=== PATIENT | female | born 1980 | race Hispanic/Latino ===

== ENCOUNTER 2024-04-02 14:00 | Outpatient (CLI) | payer BC ==
[2024-04-02 14:56] LABS: Hematocrit 34.7 % (34.9-44.5); Hemoglobin 11.1 g/dL (12.0-15.5); Mean Corpuscular Volume 87.6 fL (81.6-98.3); Mean Platelet Volume 9.7 fL (7.4-10.4); Platelet Count 291 10x3/uL (150-450); RBC Distribution Width 12.4 % (11.5-14.5); Red Blood Cell (RBC) Count 3.96 10x6/uL (3.90-5.03); White Blood Cell (WBC) Count 6.9 10x3/uL (3.5-10.5)
[2024-04-02 15:47] LABS: BHCG - Serum Negative (NEGATIVE); Pregs Control Background? CLEAR/WHITE (CLR/WHITE); Pregs Control Bar Appear? YES (CONTROL BAR)
== END 2024-04-02 14:01 | disposition home or self-care (01) ==
LOC: CSHLAB 14:00
PROVIDERS: ATTEND Obstetrics & Gynecology
DX: Z01.812 Encounter for preprocedural laboratory examination (principal); R93.89 Abnormal findings on diagnostic imaging of other specified body structures
CPT/HCPCS: 84703; 85027; 86850; 86900; 86901

== ENCOUNTER 2024-04-06 07:57 | Day surgery (SDC) | payer BC ==
[2024-04-02 14:51] VITALS: BMI 29.4
[2024-04-06] MEDS ORDERED: Gabapentin 300 MG CAP ONE (08:40)
[2024-04-06] MEDS ORDERED: Scopolamine 1 mg/72 hour Patch ONE (08:59)
[2024-04-06] MEDS ORDERED: Midazolam HCl 2 mg/2 ml Vial ONE (08:59)
[2024-04-06] MEDS ORDERED: Lidocaine 1% PF 5 ML VIAL ONE (09:20)
[2024-04-06] MEDS ORDERED: PROPOFOL 20 ML ONE (09:20)
[2024-04-06] MEDS ORDERED: Dexamethasone 4 mg/ml Vial ONE (09:30)
[2024-04-06] MEDS ORDERED: Ondansetron PF 4 MG/2 ML Vial ONE (09:30)
[2024-04-06] MEDS ORDERED: fentaNYL 50 mcg/mL 1 mL Vial ONE (09:58)
[2024-04-06] MEDS ORDERED: CEFAZOLIN 2 GM VIAL ONE (09:59)
[2024-04-06] MEDS ORDERED: HYDROcodone/Acetaminophen 5/325 mg Tablet ONE (11:44)
== END 2024-04-06 12:35 | disposition home or self-care (01) ==
LOC: CSHSDC 07:57
PROVIDERS: ATTEND Obstetrics & Gynecology
PROC: 0UDB8ZX Extraction of Endometrium, Via Natural or Artificial Opening Endoscopic, Diagnostic (ICD-10-PCS; principal; 2024-04-06)
DX: N85.8 Other specified noninflammatory disorders of uterus (principal); K58.9 Irritable bowel syndrome, unspecified; M54.9 Dorsalgia, unspecified; G89.29 Other chronic pain; Z98.51 Tubal ligation status; Z88.2 Allergy status to sulfonamides; Z79.899 Other long term (current) drug therapy
CPT/HCPCS: 88305; J1100; J2250; J2405; J2704; J3010

== ENCOUNTER 2024-04-15 18:40 | Emergency (ER) | payer BC ==
[2024-04-15] MEDS ORDERED: diphenhydrAMINE 50 MG/ML VIAL ONE (19:01)
[2024-04-15] MEDS ORDERED: Prochlorperazine 10 MG/2 ML VIAL ONE (19:01)
[2024-04-15] MEDS ORDERED: Ketorolac Tromethamine 30 MG (1 mL) VIAL ONE (19:02)
[2024-04-15] MEDS ORDERED: Dexamethasone 10 MG/ML VIAL ONE (19:02)
[2024-04-15] MEDS ORDERED: Acetaminophen 325 MG TAB ONE (19:02)
[2024-04-15 19:47] LABS: #Basophils 0.05 10x3/uL (0.0-0.2); #Eosinophils 0.08 10x3/uL (0.0-0.5); #Monocytes 0.38 10x3/uL (0.0-1.1); %Basophils 0.7 % (0.0-2.0); %Eosinophils 1.1 % (0.0-6.0); %Lymphocytes 22.5 % (18.0-47.0); %Monocytes 5.3 % (0.0-10.0); %Neutrophils 70.1 % (40.0-75.0); Hematocrit 35.5 % (34.9-44.5); Hemoglobin 11.8 g/dL (12.0-15.5); Mean Corpuscular HGB CONC 33.2 g/dL (32.0-36.0); Mean Corpuscular Hemoglobin 28.3 pg (27.0-33.0); Mean Corpuscular Volume 85.1 fL (81.6-98.3); Mean Platelet Volume 10.1 fL (7.4-10.4); Platelet Count 385 10x3/uL (150-450); Red Blood Cell (RBC) Count 4.17 10x6/uL (3.90-5.03); White Blood Cell (WBC) Count 7.1 10x3/uL (3.5-10.5)
[2024-04-15 19:54] LABS: BHCG - Serum Negative (NEGATIVE); Pregs Control Background? CLEAR/WHITE (CLR/WHITE); Pregs Control Bar Appear? YES (CONTROL BAR)
[2024-04-15 19:59] LABS: ALT (SGPT) 14 U/L (8-55); AST (SGOT) 18 U/L (5-34); Albumin 3.8 g/dL (3.5-5.0); Alkaline Phosphatase 58 U/L (40-110); Anion Gap 13 mmol/L (10-20); BUN (Urea Nitrogen) 14 mg/dL (7.0-18.7); Bilirubin, Total 0.7 mg/dL (0.2-1.2); Calc. Creatinine Clearance 0 mL/min (70-130); Calcium 9.3 mg/dL (7.8-10.44); Carbon Dioxide 22 mmol/L (22-29); Chloride 108 mmol/L (98-107); Estimated GFR 96; Globulin 3.4 g/dL (2.4-3.5); Glucose 104 mg/dL (70-105); Potassium 3.6 mmol/L (3.5-5.1); Protein, Total 7.2 g/dL (6.0-8.3); Sodium 139 mmol/L (136-145)
== END 2024-04-15 21:08 | disposition home or self-care (01) ==
LOC: CSHERS 18:40
DX: R51.9 Headache, unspecified (principal)
CPT/HCPCS: 70450; 80053; 84703; 85025; 96374; 96375; J0780; J1100; J1200; J1885